=== PATIENT | female | born 1960 | race Two or more races ===

== ENCOUNTER 2024-06-20 08:49 | Emergency (ER) | payer BC ==
[~2024-06-20] VITALS: Ht 154.9 cm; Wt 65.5 kg
[2024-06-20 09:12] VITALS: BP 120/75; PULSE 87; RESP 16; TEMP 97.8; O2SAT 96
[2024-06-20] MEDS: KETOROLAC TROMETH 60MG/2ML VIAL IM ONE (10:33)
[2024-06-20] MEDS ORDERED: PRED20TA2 PO (10:34)
[2024-06-20] MEDS ORDERED: TRAM-626 PO (10:34)
== END 2024-06-20 10:48 | disposition home or self-care (01) ==
LOC: ER 08:49
DX: M50.30 Other cervical disc degeneration, unspecified cervical region (principal); M54.12 Radiculopathy, cervical region; Z79.899 Other long term (current) drug therapy
CPT/HCPCS: 72040; 73030; 96372; 99284; J1885